=== PATIENT | female | born 1980 | race Caucasian/White ===

== ENCOUNTER → 2023-09-17 | Outpatient (CLI) | payer BC | LOC: COL.RAD 09:00 → EDSTATUS 10-30 15:46 | DX: M89.9 Disorder of bone, unspecified (principal); C50.611 Malignant neoplasm of axillary tail of right female breast | CPT/HCPCS: C1830; J0665 ==

== ENCOUNTER → 2023-11-09 | Outpatient (CLI) | payer BC | LOC: MC.RAD 08:40 | DX: Z12.31 Encounter for screening mammogram for malignant neoplasm of breast (principal) ==

== ENCOUNTER 2024-01-27 09:46 | Day surgery (SDC) | payer BC ==
[2024-01-27] VITALS (11 sets, daily range): BP systolic 100–128; BP diastolic 52–76; PULSE 74–100; TEMP 97.6–99.2
[~2024-01-27] VITALS: Ht 157.5 cm; Wt 74.0 kg
[~2024-01-27 09:46] MED LIST: LR 1,000 ML IV SCH
[2024-01-27] MEDS ORDERED: Scopolamine 1 MG Delivered 3-Day PATCH TD SCH (11:00)
[2024-01-27] MEDS ORDERED: diazePAM 10 MG TAB PO SCH (11:00)
[2024-01-27] MEDS ORDERED: LR 1,000 ML IV SCH ×2 (11:00→13:15)
[2024-01-27] MEDS ORDERED: fentaNYL 50 MCG/ML 5 ML VIAL ONE (11:24)
[2024-01-27] MEDS ORDERED: Rocuronium 50 MG/5 ML Multi-Dose VIAL ONE (11:24)
[2024-01-27] MEDS ORDERED: ePHEDrine 50 MG/ML VIAL ONE (11:39)
--- NOTE | 2024-01-27 11:40 | NUR ---
PATIENT WAS ADMITTED TO ROOM 6 AMBULATORY AND IS ALERT AND ORIENTED X3. VOICED UNDERSTANDING OF SURGERY AND ANESTHESIA AND CONSENTS SIGNED. TYPE AND SCREEN AND SERUM HCG OBTAINED. READIED FOR SURGERY. IVF INFUSING AND ALL PRE-OP MEDS GIVEN.
[2024-01-27] MEDS ORDERED: Lidocaine 2% (20 MG/ML) 20 ML UROJET UR ONE (11:46)
[2024-01-27] MEDS ORDERED: TAMOXIFEN CITRA20 MG PO (11:46)
[2024-01-27] MEDS ORDERED: Tranexamic Acid 1,000 MG/10 ML VIAL ONE (11:55)
[2024-01-27] MEDS ORDERED: dexAMETHasone 10 MG/ML VIAL ONE (12:18)
[2024-01-27] MEDS ORDERED: Ondansetron 4 MG/2 ML VIAL ONE (12:44)
[2024-01-27] MEDS ORDERED: Ketorolac 30 MG/ML VIAL ONE (12:44)
[2024-01-27] MEDS ORDERED: Ondansetron 4 MG/2 ML VIAL IV PRN ×2 (13:00→13:15)
[2024-01-27] MEDS ORDERED: HYDROmorphone 1 MG/1 ML SYRINGE [PACU/SDC ONLY] IV PRN (13:00)
[2024-01-27] MEDS ORDERED: fentaNYL 50 MCG/ML 1 ML SYRINGE/VIAL [PACU/SDC ONLY] IV PRN (13:00)
[2024-01-27] MEDS ORDERED: droPERidol 2.5 MG/ML 2 ML VIAL IV PRN (13:00)
[2024-01-27] MEDS ORDERED: Acetaminophen 500 MG TAB PO PRN (13:15)
[2024-01-27] MEDS ORDERED: Naloxone 0.4 MG/ML VIAL IV PRN (13:15)
[2024-01-27] MEDS ORDERED: oxyCODONE 5 MG TAB PO PRN (13:15)
--- NOTE | 2024-01-27 19:00 | NUR ---
[address] KWAN NOTIFIED AND OK TO DC ARLYN NOW 1999 IV TO INT. UP TO BR WITH ASSIST AND ARLYN DCD WITH 475 CC IN BAG. PERICARE DONE. RETURNED TO BED. PILAR WELL 2044 UP TO BR WITH LITTLE ASSIST. VOIDED 200CC EASILY UP IN ROOM ON OWN AND RETURNED TO BED. SCD OFF PER REQUEST.
[2024-01-27] MEDS ORDERED: Ibuprofen 800 MG TAB PO SCH (19:15)
[2024-01-27] MEDS ORDERED: Docusate Sodium 100 MG CAP PO SCH (21:00)
[2024-01-28 03:30] VITALS: BP 100/49; PULSE 64; TEMP 98.5
[2024-01-28 07:30] VITALS: BP 99/50; PULSE 62; TEMP 98
--- NOTE | 2024-01-28 09:11 | NUR ---
Initial visit; Patient thanked Technical Report Writer for looking in on her and offering comfort by offering God's blessings. Patient states her stay with us has been very pleasant and helpful. Technical Report Writer thanked Piedad for choosing [facility].
== END 2024-01-28 09:00 | disposition home or self-care (01) ==
LOC: SDCO 09:46 → OB 14:12 → SDCO 01-28 09:00 → OB 01-28 09:00
PROVIDERS: Obstetrics & Gynecology
DX: N83.12 Corpus luteum cyst of left ovary (principal); N83.291 Other ovarian cyst, right side; N80.03 Adenomyosis of the uterus; N80.00 Endometriosis of the uterus, unspecified; N92.0 Excessive and frequent menstruation with regular cycle; Z85.3 Personal history of malignant neoplasm of breast; Z79.899 Other long term (current) drug therapy
CPT/HCPCS: OP; A4314; J0690; J1100; J1885; J2405; J2704; J2765; J3010; J7120